=== PATIENT | female | born 1955 ===

== ENCOUNTER → 2020-10-19 15:49 | Outpatient (BNVA) | payer OTHER, SELFPAY | PROVIDERS: PCP Family Medicine; Visit Provider Anesthesiology ==

== ENCOUNTER → 2020-12-14 14:11 | Outpatient (BNVA) | payer OTHER, SELFPAY | PROVIDERS: PCP Family Medicine; Visit Provider Anesthesiology ==

== ENCOUNTER 2021-02-09 06:30 | Outpatient (REF) | payer OTHER, SELFPAY | END 2021-02-09 06:31 | disposition home or self-care (01) | LOC: HO.RADIR 06:30 | PROVIDERS: Visit Provider Anesthesiology | DX: G56.42 Causalgia of left upper limb (principal) | CPT/HCPCS: 64450 ==

== ENCOUNTER → 2021-02-15 13:08 | Outpatient (BNVA) | payer OTHER, SELFPAY | PROVIDERS: PCP Family Medicine; Visit Provider Anesthesiology ==

== ENCOUNTER → 2021-04-05 13:47 | Outpatient (BNVA) | payer OTHER, SELFPAY | PROVIDERS: PCP Family Medicine; Visit Provider Anesthesiology ==